=== PATIENT | female | born 1990 | race Caucasian/White ===

== ENCOUNTER 2023-12-29 11:12 | Emergency (ER) | payer OTHER ==
[~2023-12-29] VITALS: Ht 154.9 cm; Wt 88.5 kg
[2023-12-29 11:15] VITALS: BP_SYST 158; PULSE 85; RESP 19; TEMP 98.2; O2SAT 97
[2023-12-29 12:17] LABS: BASOPHILS % (AUTO) 0.2 % (0.0-2.0); EOSINOPHILS % (AUTO) 0.2 % (0.0-4.0); HEMATOCRIT 40.5 % (36-48); LYMPHOCYTES % (AUTO) 28.8 % (20.5-51.5); MEAN CORPUSCULAR HEMOGLOBIN 31 pg (27-31); MEAN CORPUSCULAR HGB CONC 34 % (32-36); MEAN CORPUSCULAR VOLUME 89 fL (79.0-98.0); MONOCYTES # (AUTO) 0.7 K/uL (0.0-1.0); MONOCYTES % (AUTO) 6.4 % (1.7-9.3); NEUTROPHILS # (AUTO) 6.8 K/uL (1.8-7.7); NEUTROPHILS % (AUTO) 64.4 % (40.0-70.0); PLATELET COUNT (AUTO) 246 K/uL (130-430); RED BLOOD CELL COUNT(AUTO) 4.56 MIL/uL (4.2-6.2); RED CELL DISTRIBUTION WIDTH 12.6 % (9.0-15.0); WHITE BLOOD COUNT (AUTO) 10.5 K/uL (4.8-10.8)
[2023-12-29] MEDS: LORazepam 2 MG/ML VIAL IVP ONE (12:30)
[2023-12-29] MEDS: ONDANSETRON HCL 4 MG/2 ML VIAL IVP ONE (12:30)
[2023-12-29 12:32] LABS: ANION GAP 7 (5-15); CALCIUM 8.5 mg/dL (8.4-11.0); CARBON DIOXIDE 26 mmol/L (23-29); CHLORIDE 103 mmol/L (98-107); CREATININE 0.76 mg/dL (0.55-1.30); GFR AFRICAN AMERICAN 113 mL/min (>90); GLUCOSE 97 mg/dL (74-106); POTASSIUM 3.4 mmol/L (3.5-5.1); SODIUM SERUM 136 mmol/L (136-145); UREA NITROGEN, BLOOD 11 mg/dL (8-21)
[2023-12-29 12:38] LABS: GFR NON AFRICAN-AMERICAN 94 mL/min (>90)
[2023-12-29] MEDS: POTASSIUM CHLORIDE 20 MEQ/PKT PACKET PO ONE (13:16)
[2023-12-29 13:58] VITALS: BP_SYST 158; PULSE 85; RESP 19; TEMP 98.2; O2SAT 97
== END 2023-12-29 13:59 | disposition home or self-care (01) ==
LOC: SED 11:12
DX: F41.8 Other specified anxiety disorders (principal); R07.89 Other chest pain; E87.6 Hypokalemia; J45.909 Unspecified asthma, uncomplicated; Z79.899 Other long term (current) drug therapy
CPT/HCPCS: 99285; 96374; 71045; 96375; 80048; 83880; 85025; 85379; 84484; 36415; 81025; J2060; J2405; 93005